=== PATIENT | female | born 1945 | race Caucasian/White ===

== ENCOUNTER → 2017-03-20 | Outpatient (CLI) | payer MEDICARE, OTHER ==
[~2017-03-20] MED LIST: ADVAIR 100/28 DISKU1 IH; CALCIUM WITH D1 CTB PO; CEPHALEXIN500 M1 PO; FLONASE NASAL S16 GM NS; FOSAMAX 70MG TA70 MG PO; LORTAB 5/500 501 TAB PO; NORCO 325 MG-51 TAB PO; PROZAC 20MG20 MG PO; PROZAC20 MG PO; SINGULAIR 110 MG/TAB PO; SINGULAIR 5M5 MG/TAB PO; STOOL SOFTENER100 M2 PO; TENORMIN 2525 MG/TAB PO; TYLENOL 325MG325 MG PO; VESICARE10 MG PO
== END ==
LOC: MC.RAD 14:36
DX: Z12.31 Encounter for screening mammogram for malignant neoplasm of breast (principal); Z90.12 Acquired absence of left breast and nipple
CPT/HCPCS: G0202

== ENCOUNTER → 2020-11-09 | Outpatient (CLI) | payer MEDICARE, OTHER | LOC: MC.RAD 15:25 | DX: Z12.31 Encounter for screening mammogram for malignant neoplasm of breast (principal); Z85.3 Personal history of malignant neoplasm of breast; Z90.12 Acquired absence of left breast and nipple ==

== ENCOUNTER 2021-03-28 11:05 | Outpatient (RCR) | payer MEDICARE, OTHER | END 2021-06-17 | disposition home or self-care (01) | LOC: WSST | DX: F03.91 Unspecified dementia, unspecified severity, with behavioral disturbance (principal) ==